=== PATIENT | female | born 1995 ===

== ENCOUNTER 2016-08-11 10:24 | Inpatient (IN) ==
[2016-08-11] MEDS ORDERED: OXYTOCIN/LR 20 UNIT/1,000 ML BAG IV ONE ×2 (10:25→12:00)
[2016-08-11] MEDS ORDERED: METHYLERGONOVINE 0.2 MG/1 ML AMP IM ONE (10:25)
[2016-08-11] MEDS ORDERED: LANOLIN 50% CREAM 0.3 OZ TUBE TOP PRN (10:52)
[2016-08-11] MEDS ORDERED: HYDROCORTISONE 2.5% RECTAL CREAM 30 GM TUBE TOP PRN (10:52)
[2016-08-11] MEDS ORDERED: ACETAMINOPHEN 325 MG TABLET PO PRN (10:52)
[2016-08-11] MEDS ORDERED: WITCH HAZEL PADS 100/JAR TOP PRN (10:52)
[2016-08-11] MEDS ORDERED: oxyCODONE/ACETAMINOPHEN 5-325 MG TABLET PO PRN (10:52)
[2016-08-11] MEDS ORDERED: ONDANSETRON 4 MG/2 ML VIAL IV PRN (10:52)
[2016-08-11] MEDS ORDERED: IBUPROFEN 800 MG TABLET PO PRN (10:52)
[2016-08-11] MEDS ORDERED: BISACODYL 10 MG SUPP RECTAL PRN (10:52)
[2016-08-11] MEDS ORDERED: BENZOCAINE 20%/MENTHOL 0.5% SPRAY 56 GM CAN TOP PRN (10:52)
[2016-08-11 12:19] LABS: Basophils % 0.1 % (0.0-0.8); Eosinophils % 0.1 % (0.00-10.9); Hemoglobin 11.8 GM/DL (12.0-16.0); Immature Granulocytes % 0.8 %; Immature Granulocytes Absolute 0.12 #; Lymphocytes # 1.2 10*3/uL (1.4-4.0); Lymphocytes % 8.1 % (21.3-54.2); Mean Corpuscular HGB Conc 35.8 GM/DL (32-36); Mean Corpuscular Hemoglobin 32 PG (27-34); Mean Corpuscular Volume 88.7 FL (87-102); Mean Platelet Volume 12.2 FL (9.6-12.0); Monocytes # 0.6 10*3/uL (0.11-0.8); Monocytes % 4.1 % (1.7-12.7); Neutrophils # 12.4 10*3/uL (1.4-7.4); Neutrophils % 86.8 % (38.7-73.9); Platelet Count 163 T/CUMM (130-400); Red Blood Count 3.72 MC/CUMM (3.8-5.5); Red Cell Distribution Width 11.9 % (9.3-17.3); White Blood Count 14.3 T/CUMM (4-12)
[2016-08-11] MEDS: oxyCODONE/ACETAMINOPHEN 5-325 MG TABLET PO PRN (12:30)
[2016-08-11] MEDS: DOCUSATE SODIUM 100 MG CAPSULE PO SCH (22:07)
--- NOTE | 2016-08-12 00:30 | OB/GYN History & Physical ---
History of Present Illness Chief complaint: Delivery History of present illness: Ms. Chambers is a 21 year old female who was brought in via ambulance delivered at 37 weeks. Placenta delivered shortly after arrival. Male infant, 6 lbs 6 oz.No lacerations per nursing report. Pt reports that she awoke and began having contractions. Went to [facility]. "It feels like they took forever to get the ambulance". Delivered about 10 minutes prior to arrival here. uneventful. No Pm or Surg hx. Home Medications Medication Instructions Recorded Confirmed Type No Known Home Medications [No 08/11/16 08/11/16 History Known Home Medications] Allergies Allergy/AdvReac Type Severity Reaction Status Date / Time No Known Allergies Allergy Verified 08/11/16 10:52 Medical,Surgical,& Family Hx - Medical History Neurology: No history of: Seizures HEENT: History of: Eye Problem (GLASSES) Gastrointestinal: History of: GI Problems (DIARRHEA FOR 2 WEEKS) Musculoskeletal: History of: Back/Neck Problems (LOWER BACK PAIN OCCASIONAL) Reproductive: No history of: Ectopic , Complication - Surgical History Abdominal Surgeries: Surgical HX of: Abdominal Surgery, Appendectomy Reproductive Surgeries: Patient denies;: Section - Family History Family History: Reports;: Family Diabetes (MOTHER), Family Hypertension (MOTHER AND FATHER), Family Stroke (MOTHER) - Social History Smoking Status: Never smoker Frequency of Alcohol Use: None Type of Drug Use: None Exam [employer] - Constitutional Vitals: Vital Signs Temp Pulse Pulse Resp BP BP Pulse Ox 08/12/16 00:00 97.6 F 74 24 116/65 96 08/11/16 19:25 97.7 F 71 20 120/69 97 08/11/16 18:00 70 18 116/69 96 08/11/16 17:15 70 18 119/58 96 08/11/16 16:15 67 20 96/64 96 08/11/16 15:45 69 18 119/70 96 08/11/16 15:15 97.4 F L 63 18 128/72 95 08/11/16 12:00 122/63 08/11/16 10:30 98.9 F 75 20 129/70 99 General appearance: no acute distress - Head Head exam: Present: normocephalic - Eye Eye exam: Present: EOMI Pupils: Present: DONG - Respiratory Respiratory exam: Present: clear to auscultation bilaterally - Cardiovascular Cardiovascular exam: Present: regular rate and rhythm - GI/Abdominal GI/Abdominal exam: Present: soft Assessment and Plan (1) Encounter for full-term uncomplicated delivery Status: Acute Assessment and plan: Delivery in ambulance ]Routine PP care Current Visit: Yes Results - Labs CBC & BMP: 08/12/16 03:31
[2016-08-12 03:43] LABS: Basophils % 0.1 % (0.0-0.8); Eosinophils % 0.2 % (0.00-10.9); Hematocrit 24.9 VOL% (35.7-47.0); Hemoglobin 8.8 GM/DL (12.0-16.0); Immature Granulocytes Absolute 0.13 #; Lymphocytes # 2.6 10*3/uL (1.4-4.0); Lymphocytes % 20.7 % (21.3-54.2); Mean Corpuscular HGB Conc 35.3 GM/DL (32-36); Mean Corpuscular Hemoglobin 31 PG (27-34); Mean Corpuscular Volume 88.9 FL (87-102); Mean Platelet Volume 11.8 FL (9.6-12.0); Monocytes % 7.7 % (1.7-12.7); Neutrophils # 8.8 10*3/uL (1.4-7.4); Neutrophils % 70.3 % (38.7-73.9); Platelet Count 146 T/CUMM (130-400); Red Cell Distribution Width 12.1 % (9.3-17.3); White Blood Count 12.6 T/CUMM (4-12)
[2016-08-12] MEDS: FERROUS SULFATE 325 MG TABLET PO SCH ×2 (08:28→21:46)
[2016-08-12] MEDS: DOCUSATE SODIUM 100 MG CAPSULE PO SCH ×2 (08:28→21:46)
[2016-08-12] MEDS: oxyCODONE/ACETAMINOPHEN 5-325 MG TABLET PO PRN (10:51)
[2016-08-12] MEDS ORDERED: MEASLES/MUMPS/RUBELLA VACCINE 0.5 ML VIAL SUBCUT ONE (10:52)
[2016-08-12] MEDS ORDERED: RHO(D) IMMUNE GLOBULIN 300 MCG SYRINGE IM ONE (10:52)
[2016-08-12] MEDS ORDERED: DIPH/TET/ACEL PERT BOOSTER VACCINE 0.5 ML VIAL IM ONE (10:52)
--- NOTE | 2016-08-12 11:30 | OB/GYN Progress Note ---
Assessment and Plan (1) Encounter for full-term uncomplicated delivery Status: Acute Assessment and plan: PPD#1 s/p delivery in ambulance Doing well Continue care Current Visit: Yes FOOD SAMPLER - PN: Subj Interval history: Pt feels good this morning. No complaints Exam FOOD SAMPLER - Constitutional Vitals: Vital Signs Temp Pulse Pulse Resp BP BP Pulse Ox 08/12/16 07:52 97.2 F L 69 18 120/72 99 08/12/16 03:45 98.2 F 76 20 109/58 97 08/12/16 02:00 18 08/12/16 00:00 97.6 F 74 24 116/65 96 08/11/16 19:25 97.7 F 71 20 120/69 97 08/11/16 18:00 70 18 116/69 96 08/11/16 17:15 70 18 119/58 96 08/11/16 16:15 67 20 96/64 96 08/11/16 15:45 69 18 119/70 96 08/11/16 15:15 97.4 F L 63 18 128/72 95 08/11/16 12:00 122/63 General appearance: no acute distress - Head Head exam: Present: normocephalic - GI/Abdominal GI/Abdominal exam: Present: soft. Absent: tenderness Results - Labs CBC & BMP: 08/12/16 03:31
--- NOTE | 2016-08-13 07:54 | Discharge Summary ---
Hospital Course - Hospital Course Hospital Course: Routine course without issue Pt without complaints on day of discharge. Home today Diagnosis - Discharge Diagnosis (1) Encounter for full-term uncomplicated delivery Status: Acute Specialty Discharge - Follow Up or Referrals Follow up with: Mack Quinn MD [Physician] - (Call the office Sunday and make a 6 week follow up appointment to see ) Discharge Plan - Discharge Data Disposition: Disch To Home/Self Care Condition at Discharge: Stable Discharge Diet: advance to your usual diet Activity: other (routine ) Hygiene: may shower Weight Bearing at Discharge: full weight bearing Driving: no restrictions Contact your physician if you experience:: fever over 101, Difficulty voiding - Discharge Medications New Ibuprofen Tab [Motrin Tab] 800 mg PO Q6H PRN #20 tablet PRN Reason: Pain Moderate (4-7) - Follow Up or Referral Follow Up: Mack Quinn MD [Physician] - (Call the office Sunday and make a 6 week follow up appointment to see ) - Forms/Instructions Instructions: Vaginal Delivery (DC), Bleeding (DC) Exam - Constitutional Vitals: Period Temp Pulse Resp BP Sys/Parsons Pulse Ox Last 24 Hr 97.2 F-98.1 F 60-71 18-20 103-120/52-72 96-99 General appearance: normal weight, no acute distress - Head Head exam: Present: normal inspection - Eye Pupils: Present: DONG - GI/Abdominal GI/Abdominal exam: Present: soft. Absent: tenderness DS: Provider Date of admission: 08/11/16 10:25 Primary care physician: Court Avina MD Attending physician on admission: Mack Quinn MD Discharging clinician: Krystal Loredo MD
[2016-08-13 08:24] VITALS: BP 102/62
[2016-08-13] MEDS: FERROUS SULFATE 325 MG TABLET PO SCH (09:26)
[2016-08-13] MEDS: DOCUSATE SODIUM 100 MG CAPSULE PO SCH (09:26)
== END 2016-08-13 12:30 | disposition home or self-care (01) | DRG 560 ==
LOC: N.LD 10:25 → N.LDOUT 10:38 → N.LD 10:41 → N.OB 15:15
PROVIDERS: ADMIT Obstetrics & Gynecology; ATTEND Obstetrics & Gynecology

== ENCOUNTER 2017-08-19 17:02 | Inpatient (IN) ==
[2017-08-19] MEDS: LACTATED RINGERS 1,000 ML IV SCH (18:00)
[2017-08-19] MEDS: ONDANSETRON 4 MG/2 ML VIAL IV PRN (18:13)
[2017-08-19] MEDS: MEPERIDINE 50 MG/1 ML VIAL IV PRN (18:17)
[2017-08-20] MEDS: MEPERIDINE 50 MG/1 ML VIAL IV PRN (05:04)
[2017-08-20] MEDS: ONDANSETRON 4 MG/2 ML VIAL IV PRN (05:08)
[2017-08-20] MEDS: LACTATED RINGERS 1,000 ML IV SCH (07:27)
[2017-08-20] MEDS ORDERED: MEPERIDINE 50 MG/1 ML VIAL IV PRN (08:21)
[2017-08-20] MEDS ORDERED: ONDANSETRON 4 MG/2 ML VIAL IV PRN (08:21)
[2017-08-20] MEDS ORDERED: BUTORPHANOL 2 MG/ML VIAL IV PRN (08:21)
[2017-08-20] MEDS ORDERED: OXYTOCIN/LR 20 UNIT/1,000 ML BAG IV SCH (08:30)
[2017-08-20] MEDS ORDERED: LACTATED RINGERS 1,000 ML IV SCH (08:30)
[2017-08-20] MEDS ORDERED: LACTATED RINGERS 1,000 ML IV ONE (09:01)
[2017-08-20] MEDS ORDERED: PROMETHAZINE 25 MG/1 ML VIAL IM ONE (09:01)
[2017-08-20] MEDS ORDERED: hydrOXYzine HCL 25 MG/1 ML VIAL IM PRN (09:01)
[2017-08-20] MEDS ORDERED: diphenhydrAMINE 50 MG/1 ML VIAL IV PRN ×2 (09:01)
[2017-08-20] MEDS ORDERED: ePHEDrine 50 MG/ML AMP IV PRN (09:01)
[2017-08-20] MEDS ORDERED: FAMOTIDINE 20 MG/2 ML VIAL IV ONE (09:01)
[2017-08-20] MEDS ORDERED: CITRIC ACID/SODIUM CITRATE 30 ML UDCUP PO ONE (09:01)
[2017-08-20 09:04] LABS: Basophils % 0.3 % (0.0-0.8); Eosinophils % 0.5 % (0.00-10.9); Hematocrit 34.1 VOL% (35.7-47.0); Hemoglobin 11.2 GM/DL (12.0-16.0); Immature Granulocytes % 0.5 %; Immature Granulocytes Absolute 0.03 #; Lymphocytes # 1.8 10*3/uL (1.4-4.0); Lymphocytes % 28.3 % (21.3-54.2); Mean Corpuscular HGB Conc 32.8 GM/DL (32-36); Mean Corpuscular Hemoglobin 29 PG (27-34); Mean Corpuscular Volume 88.8 FL (87-102); Mean Platelet Volume 11.4 FL (9.6-12.0); Monocytes # 0.5 10*3/uL (0.11-0.8); Monocytes % 8.2 % (1.7-12.7); NRBC # 0.02 10*3/uL; Neutrophils # 3.9 10*3/uL (1.4-7.4); Neutrophils % 62.2 % (38.7-73.9); Platelet Count 155 T/CUMM (130-400); Red Blood Count 3.84 MC/CUMM (3.8-5.5); White Blood Count 6.3 T/CUMM (4-12)
[2017-08-20 09:30] LABS: Albumin 2.2 G/DL (3.4-5.0); Bilirubin,Total 0.6 MG/DL (0.2-1.0); Calcium 8.9 MG/DL (8.5-10.1); Osmolality,Calculated 271.5 MOS/KG (273-304); Potassium 4.2 MMOL/L (3.5-5.1); Total Protein 6.5 G/DL (6.4-8.3)
[2017-08-20] MEDS ORDERED: fentaNYL 2 MCG/ROPIV 0.2% EPID 150 ML EPIDURAL SCH (09:30)
[2017-08-20 11:28] LABS: Apearance,Urine CLEAR (Clear); Bilirubin,Urine Negative (Negative); Blood, Urine Negative (Negative); Glucose,Urine (UA) Negative (Negative); Ketones,Urine Negative (Negative); Mucus,Urine Occasional /LPF (Occasional); Nitrite,Urine Negative (Negative); Protein,Urine Negative; RBC,Urine <1 /HPF (0-4); Squamous Epithelial Cell,Urine Occasional /HPF (0-10); Urine Color Yellow (Yellow); Urine Specific Gravity 1.008 (1.001-1.035); WBC,Urine 1 /HPF (0-6)
[2017-08-20] MEDS ORDERED: miSOPROStol 200 MCG TABLET ONE (11:34)
[2017-08-20] MEDS ORDERED: METHYLERGONOVINE 0.2 MG/1 ML AMP ONE (11:34)
[2017-08-20] MEDS ORDERED: LIDOCAINE 1% 50 ML VIAL ONE (11:34)
[2017-08-20] MEDS ORDERED: IBUPROFEN 800 MG TABLET PO PRN ×2 (15:55→17:43)
[2017-08-20] MEDS ORDERED: ACETAMINOPHEN/CODEINE 300-30 MG TABLET PO PRN (17:43)
[2017-08-20] MEDS ORDERED: DIPH/TET/ACEL PERT BOOSTER VACCINE 0.5 ML VIAL IM ONE (17:43)
[2017-08-20] MEDS ORDERED: RHO(D) IMMUNE GLOBULIN 300 MCG SYRINGE IM ONE (17:43)
[2017-08-20] MEDS ORDERED: oxyCODONE/ACETAMINOPHEN 5-325 MG TABLET PO PRN ×2 (17:43)
[2017-08-20] MEDS ORDERED: MEASLES/MUMPS/RUBELLA VACCINE 0.5 ML VIAL SUBCUT ONE (17:43)
[2017-08-20] MEDS ORDERED: ACETAMINOPHEN 325 MG TABLET PO PRN (17:43)
[2017-08-20] MEDS ORDERED: BENZOCAINE 20%/MENTHOL 0.5% SPRAY 56 GM CAN TOP PRN (17:43)
[2017-08-20] MEDS ORDERED: LANOLIN 50% CREAM 0.3 OZ TUBE TOP PRN (17:43)
[2017-08-20] MEDS ORDERED: BISACODYL 10 MG SUPP RECTAL PRN (17:43)
[2017-08-20] MEDS ORDERED: OXYTOCIN/LR 20 UNIT/1,000 ML BAG IV ONE (17:43)
[2017-08-20] MEDS ORDERED: WITCH HAZEL PADS 100/JAR TOP PRN (17:43)
[2017-08-20] MEDS ORDERED: HYDROCORTISONE 2.5% RECTAL CREAM 30 GM TUBE TOP PRN (17:43)
[2017-08-20] MEDS: DOCUSATE SODIUM 100 MG CAPSULE PO SCH (20:48)
[2017-08-21 06:32] LABS: Basophils % 0.3 % (0.0-0.8); Eosinophils % 0.5 % (0.00-10.9); Hematocrit 26.7 VOL% (35.7-47.0); Immature Granulocytes % 0.7 %; Immature Granulocytes Absolute 0.05 #; Lymphocytes % 26.4 % (21.3-54.2); Mean Corpuscular HGB Conc 34.1 GM/DL (32-36); Mean Corpuscular Hemoglobin 29 PG (27-34); Mean Corpuscular Volume 86.1 FL (87-102); Mean Platelet Volume 11.6 FL (9.6-12.0); Monocytes # 0.7 10*3/uL (0.11-0.8); Monocytes % 8.8 % (1.7-12.7); Neutrophils # 4.8 10*3/uL (1.4-7.4); Neutrophils % 63.3 % (38.7-73.9); Platelet Count 133 T/CUMM (130-400); Red Cell Distribution Width 13.1 % (9.3-17.3); White Blood Count 7.5 T/CUMM (4-12)
[2017-08-21 06:41] LABS: Hemoglobin 9.1 GM/DL (12.0-16.0)
[2017-08-21] MEDS: DOCUSATE SODIUM 100 MG CAPSULE PO SCH ×2 (09:17→21:04)
[2017-08-21] MEDS: FERROUS SULFATE 325 MG TABLET PO SCH ×2 (09:17→21:04)
[2017-08-22 08:45] VITALS: BP 127/71
[2017-08-22] MEDS: DOCUSATE SODIUM 100 MG CAPSULE PO SCH (10:07)
[2017-08-22] MEDS: FERROUS SULFATE 325 MG TABLET PO SCH (10:07)
== END 2017-08-22 14:10 | disposition home or self-care (01) | DRG 560 ==
LOC: N.LDOUT 17:02 → N.LD 17:03 → N.OB 08-20 14:29
PROVIDERS: ADMIT Obstetrics & Gynecology; ATTEND Obstetrics & Gynecology

== ENCOUNTER 2019-03-24 15:26 | Inpatient (IN) ==
[2019-03-24] MEDS ORDERED: BUTORPHANOL 2 MG/ML VIAL IV PRN (16:17)
[2019-03-24 16:35] LABS: Basophils % 0.2 % (0.0-0.8); Eosinophils % 0.2 % (0.00-10.9); Hematocrit 31.1 VOL% (35.7-47.0); Hemoglobin 10.3 GM/DL (12.0-16.0); Immature Granulocytes % 1.3 %; Immature Granulocytes Absolute 0.06 #; Lymphocytes # 0.9 10*3/uL (1.4-4.0); Lymphocytes % 19.2 % (21.3-54.2); Mean Corpuscular HGB Conc 33.1 GM/DL (32-36); Mean Corpuscular Volume 88.4 FL (87-102); Mean Platelet Volume 11.2 FL (9.6-12.0); Monocytes % 10.9 % (1.7-12.7); Neutrophils % 68.2 % (38.7-73.9); Platelet Count 154 T/CUMM (130-400); Red Blood Count 3.52 MC/CUMM (3.8-5.5); Red Cell Distribution Width 13.3 % (9.3-17.3); White Blood Count 4.6 T/CUMM (4-12)
[2019-03-24 16:55] LABS: Albumin 2.2 G/DL (3.4-5.0); Bilirubin,Total 0.5 MG/DL (0.2-1.0); Calcium 8.1 MG/DL (8.5-10.1); Total Protein 6.8 G/DL (6.4-8.3)
[2019-03-24] MEDS: MEPERIDINE 50 MG/1 ML VIAL IV PRN (19:26)
[2019-03-25] MEDS ORDERED: OXYTOCIN/LR 20 UNIT/1,000 ML BAG IV SCH (02:00)
[2019-03-25] MEDS: LACTATED RINGERS 1,000 ML IV SCH ×2 (02:06→11:08)
[2019-03-25] MEDS: MEPERIDINE 50 MG/1 ML VIAL IV PRN ×2 (02:08→07:33)
[2019-03-25] MEDS: ONDANSETRON 4 MG/2 ML VIAL IV PRN ×2 (07:31→14:13)
[2019-03-25] MEDS ORDERED: NALOXONE 0.4 MG/ML VIAL IV PRN (09:24)
[2019-03-25] MEDS ORDERED: ePHEDrine 50 MG/ML AMP IV PRN (09:24)
[2019-03-25] MEDS ORDERED: hydrOXYzine HCL 25 MG/1 ML VIAL IM PRN (09:24)
[2019-03-25] MEDS ORDERED: diphenhydrAMINE 50 MG/1 ML VIAL IV PRN ×2 (09:24)
[2019-03-25] MEDS ORDERED: LACTATED RINGERS 1,000 ML IV ONE (09:24)
[2019-03-25] MEDS ORDERED: CITRIC ACID/SODIUM CITRATE 30 ML UDCUP PO ONE (09:24)
[2019-03-25] MEDS ORDERED: FAMOTIDINE 20 MG/2 ML VIAL IV ONE (09:24)
[2019-03-25] MEDS ORDERED: PROMETHAZINE 25 MG/1 ML VIAL IM ONE (09:24)
[2019-03-25] MEDS ORDERED: fentaNYL 2 MCG/ROPIV 0.2% EPID 100 ML EPIDURAL SCH (09:30)
[2019-03-25] MEDS ORDERED: OXYTOCIN/LR 20 UNIT/1,000 ML BAG IV ONE ×4 (10:50→20:44)
[2019-03-25] MEDS ORDERED: TRANEXAMIC ACID 1,000 MG/10 ML VIAL ONE (10:50)
[2019-03-25] MEDS ORDERED: miSOPROStoL 200 MCG TABLET ONE (10:50)
[2019-03-25] MEDS ORDERED: CARBOPROST TROMETHAMINE 250 MCG/ML AMP IM ONE (10:51)
[2019-03-25] MEDS ORDERED: METHYLERGONOVINE 0.2 MG/1 ML AMP ONE (10:51)
[2019-03-25 11:58] LABS: Apearance,Urine CLEAR (Clear); Bilirubin,Urine Negative (Negative); Blood, Urine Negative (Negative); Glucose,Urine (UA) Negative (Negative); Ketones,Urine Negative (Negative); Mucus,Urine Many /LPF (Occasional); Nitrite,Urine Negative (Negative); Protein,Urine Negative; RBC,Urine 1 /HPF (0-4); Squamous Epithelial Cell,Urine Occasional /HPF (0-10); Urine Color Amber (Yellow); Urine Specific Gravity 1.018 (1.001-1.035); WBC,Urine <1 /HPF (0-6)
[2019-03-25 12:02] LABS: Cord Arterial Blood HCO3 20.3 MMOL/L
[2019-03-25 12:06] LABS: Cord Venous Blood HCO3 23.1 MMOL/L; Cord Venous Blood PCO2 41.3 MMHG; Cord Venous Blood PO2 35.4
[2019-03-25] MEDS ORDERED: LANOLIN 50% CREAM 0.3 OZ TUBE TOP PRN (15:25)
[2019-03-25] MEDS ORDERED: BENZOCAINE 20%/MENTHOL 0.5% SPRAY 56 GM CAN TOP PRN (15:25)
[2019-03-25] MEDS ORDERED: RHO(D) IMMUNE GLOBULIN 300 MCG SYRINGE IM ONE (15:25)
[2019-03-25] MEDS ORDERED: WITCH HAZEL PADS 100/JAR TOP PRN (15:25)
[2019-03-25] MEDS ORDERED: ACETAMINOPHEN 325 MG TABLET PO PRN (15:25)
[2019-03-25] MEDS ORDERED: HYDROCORTISONE 2.5% RECTAL CREAM 30 GM TUBE TOP PRN (15:25)
[2019-03-25] MEDS ORDERED: DIPH/TET/ACEL PERT BOOSTER VACCINE 0.5 ML VIAL IM ONE (15:25)
[2019-03-25] MEDS ORDERED: MEASLES/MUMPS/RUBELLA VACCINE 0.5 ML VIAL SUBCUT ONE (15:25)
[2019-03-25] MEDS ORDERED: BISACODYL 10 MG SUPP RECTAL PRN (15:25)
[2019-03-25] MEDS ORDERED: oxyCODONE/ACETAMINOPHEN 5-325 MG TABLET PO PRN (15:25)
[2019-03-25] MEDS: oxyCODONE/ACETAMINOPHEN 5-325 MG TABLET PO PRN (17:01)
[2019-03-25] MEDS: IBUPROFEN 800 MG TABLET PO PRN (17:01)
[2019-03-25 21:19] LABS: Eosinophils % 0.2 % (0.00-10.9); Hematocrit 27.3 VOL% (35.7-47.0); Hemoglobin 8.9 GM/DL (12.0-16.0); Immature Granulocytes % 0.6 %; Immature Granulocytes Absolute 0.04 #; Lymphocytes # 0.9 10*3/uL (1.4-4.0); Lymphocytes % 14.4 % (21.3-54.2); Mean Corpuscular HGB Conc 32.6 GM/DL (32-36); Mean Corpuscular Volume 90.1 FL (87-102); Mean Platelet Volume 11.4 FL (9.6-12.0); Monocytes % 7.3 % (1.7-12.7); Neutrophils % 77.5 % (38.7-73.9); Platelet Count 120 T/CUMM (130-400); Red Blood Count 3.03 MC/CUMM (3.8-5.5); Red Cell Distribution Width 13.3 % (9.3-17.3); White Blood Count 6.3 T/CUMM (4-12)
[2019-03-25] MEDS: FERROUS SULFATE 325 MG TABLET PO SCH (21:25)
[2019-03-25] MEDS: DOCUSATE SODIUM 100 MG CAPSULE PO SCH (21:25)
[2019-03-25] MEDS ORDERED: METHYLERGONOVINE 0.2 MG/1 ML AMP IM ONE (22:46)
[2019-03-26] MEDS: oxyCODONE/ACETAMINOPHEN 5-325 MG TABLET PO PRN ×3 (00:02→23:04)
[2019-03-26] MEDS: IBUPROFEN 800 MG TABLET PO PRN (00:02)
[2019-03-26 05:56] LABS: Basophils % 0.4 % (0.0-0.8); Eosinophils % 0.4 % (0.00-10.9); Hematocrit 25.9 VOL% (35.7-47.0); Hemoglobin 8.4 GM/DL (12.0-16.0); Immature Granulocytes % 0.9 %; Immature Granulocytes Absolute 0.05 #; Lymphocytes # 1.3 10*3/uL (1.4-4.0); Lymphocytes % 22.2 % (21.3-54.2); Mean Corpuscular HGB Conc 32.4 GM/DL (32-36); Mean Corpuscular Volume 89.3 FL (87-102); Mean Platelet Volume 11.5 FL (9.6-12.0); Monocytes % 6.9 % (1.7-12.7); Neutrophils % 69.2 % (38.7-73.9); Platelet Count 112 T/CUMM (130-400); Red Cell Distribution Width 13.2 % (9.3-17.3); White Blood Count 5.7 T/CUMM (4-12)
[2019-03-26] MEDS: DOCUSATE SODIUM 100 MG CAPSULE PO SCH ×2 (10:28→21:10)
[2019-03-26] MEDS: FERROUS SULFATE 325 MG TABLET PO SCH ×3 (10:28→21:10)
[2019-03-27 07:19] VITALS: BP 105/57
[2019-03-27] MEDS: DOCUSATE SODIUM 100 MG CAPSULE PO SCH (08:08)
[2019-03-27] MEDS: IBUPROFEN 800 MG TABLET PO PRN (08:08)
[2019-03-27] MEDS: FERROUS SULFATE 325 MG TABLET PO SCH (08:08)
== END 2019-03-27 13:30 | disposition home or self-care (01) | DRG 560 ==
LOC: N.LDOUT 15:26 → N.LD 15:30 → N.OB 03-25 15:30
PROVIDERS: ADMIT Obstetrics & Gynecology; ATTEND Obstetrics & Gynecology

== ENCOUNTER 2020-11-15 06:18 | Observation (INO) ==
[~2020-11-15 06:18] MED LIST: ACETAMINOPHEN 500 MG TABLET PO ONE; DIAZEPAM 5 MG TABLET PO ONE; FAMOTIDINE 20 MG TABLET PO ONE; GABAPENTIN 400 MG CAPSULE PO ONE; SCOPOLAMINE 1.5 MG PATCH TRANSDERM ONE
[2020-11-15] MEDS ORDERED: TISSUE ADHESIVE 1 EACH APPLICATOR TOP ONE (06:32)
[2020-11-15] MEDS ORDERED: LIDOCAINE 1%/EPI INJ 20 ML VIAL ONE (06:32)
[2020-11-15] MEDS ORDERED: BUPIVACAINE MPF 0.25% 30 ML VIAL ONE (06:32)
[2020-11-15] MEDS ORDERED: propofoL 200 MG/20 ML VIAL IV ONE (06:43)
[2020-11-15] MEDS ORDERED: LIDOCAINE 2% 5 ML VIAL ONE (06:43)
[2020-11-15] MEDS ORDERED: fentaNYL 250 MCG/5 ML VIAL ONE (06:44)
[2020-11-15] MEDS ORDERED: MIDAZOLAM 2 MG/2 ML VIAL ONE (06:44)
[2020-11-15] MEDS ORDERED: LACTATED RINGERS 1,000 ML IV SCH (07:00)
[2020-11-15] MEDS ORDERED: KETOROLAC 30 MG/1 ML VIAL ONE (07:31)
[2020-11-15] MEDS ORDERED: ONDANSETRON 4 MG/2 ML VIAL ONE (07:31)
[2020-11-15] MEDS ORDERED: DEXAMETHASONE 4 MG/1 ML VIAL ONE (07:31)
[2020-11-15] MEDS ORDERED: ROCURONIUM 50 MG/5 ML VIAL IV ONE (07:31)
[2020-11-15] MEDS ORDERED: SEVOFLURANE 1 UNIT/15 MINUTE INH ONE ×5 (07:31→08:23)
[2020-11-15] MEDS ORDERED: LACTATED RINGERS 1,000 ML IV ONE (07:44)
[2020-11-15] MEDS ORDERED: LABETALOL 20 MG/4 ML SYRINGE IV ONE (08:01)
[2020-11-15] MEDS ORDERED: HYDROmorphone 2 MG/1 ML VIAL ONE (08:43)
[2020-11-15] MEDS ORDERED: ONDANSETRON 4 MG/2 ML VIAL IV PRN (08:53)
[2020-11-15] MEDS ORDERED: INFLUENZA VIRUS VACCINE 0.5 ML SYRINGE IM ONE (10:23)
[2020-11-15] MEDS: MORPHINE 2 MG/1 ML SYRINGE IV PRN ×3 (10:33→20:23)
[2020-11-16] MEDS: MORPHINE 2 MG/1 ML SYRINGE IV PRN ×2 (01:20→07:54)
[2020-11-16 05:43] LABS: Basophils % 0.1 % (0.0-0.8); Eosinophils % 0.1 % (0.00-10.9); Hematocrit 33.8 VOL% (35.7-47.0); Hemoglobin 11.2 GM/DL (12.0-16.0); Immature Granulocytes % 0.3 %; Immature Granulocytes Absolute 0.03 #; Lymphocytes % 20.4 % (21.3-54.2); Mean Corpuscular HGB Conc 33.1 GM/DL (32-36); Mean Corpuscular Volume 94.4 FL (87-102); Mean Platelet Volume 10.3 FL (9.6-12.0); Monocytes % 7.9 % (1.7-12.7); Neutrophils % 71.2 % (38.7-73.9); Platelet Count 227 T/CUMM (130-400); Red Blood Count 3.58 MC/CUMM (3.8-5.5); White Blood Count 9.8 T/CUMM (4-12)
[2020-11-16 08:58] VITALS: BP 112/61
== END 2020-11-16 11:15 | disposition home or self-care (01) ==
LOC: N.4EOUT 06:18 → N.OR 06:18 → N.4E 06:18 → N.SDSINP 06:20 → N.OR 09:46 → N.4E 10:03
PROVIDERS: ADMIT Surgery; ATTEND Surgery
PROC: LAPCHOL (2020-11-15 07:01)